=== PATIENT | male | born 1965 | race Caucasian/White ===

== ENCOUNTER 2019-04-09 22:30 | Emergency (ER) | payer OTHER ==
[~2019-04-09] VITALS: Ht 160 cm; Wt 75.7 kg
[2019-04-09 22:37] VITALS: Ht 160 cm; Wt 75.7 kg
[2019-04-10 05:34] VITALS: BP 113/64
== END 2019-04-10 05:34 | disposition home or self-care (01) ==
LOC: ED 22:30
DX: S61.215A Laceration without foreign body of left ring finger without damage to nail, initial encounter (principal); F10.129 Alcohol abuse with intoxication, unspecified; E11.9 Type 2 diabetes mellitus without complications; Y04.8XXA Assault by other bodily force, initial encounter; Y93.89 Activity, other specified; Y92.89 Other specified places as the place of occurrence of the external cause; Y99.8 Other external cause status
CPT/HCPCS: 82962; G0480; J7030